=== PATIENT | male | born 1980 | race Caucasian/White ===

== ENCOUNTER → 2019-02-13 11:47 | Outpatient (CLI) | payer MEDICARE, MEDICAID, SELFPAY ==
[2014-11-19 14:53] VITALS: BMI 42.2
[2019-02-13 12:48] LABS: Albumin, Serum 3.2 g/dL (3.2-5.0); BUN 16 mg/dL (7-18); BUN/Creat Ratio 11.5 RATIO (10-20); Calcium,Total 9.6 mg/dL (8.5-10.1); Chloride 106 mmol/L (98-107); Creatinine, Serum 1.39 mg/dL (0.70-1.30); EST Glomerular Filtration Rate 61 mL/min (>60); Est Glom Filt Rate - Afr Amer 74 mL/min (>60); Glucose 70 mg/dL (74-106); Phosphorus 2.3 mg/dL (2.5-4.9); Potassium 4.3 mmol/L (3.5-5.1); Sodium Level 140 mmol/L (136-145)
[2019-02-13 12:57] LABS: Vitamin D,25 Hydroxy 47.3 ng/mL (29.95-100.01)
[2019-02-13 12:58] LABS: PTHIN 121.5 pg/mL (18.4-80.1)
== END ==
PROVIDERS: Family Provider Family Medicine; PCP Family Medicine; Visit Provider Internal Medicine Nephrology
DX: N18.3 Chronic kidney disease, stage 3 (moderate) (principal); E21.0 Primary hyperparathyroidism
CPT/HCPCS: 36415; 80069; 82306; 83970

== ENCOUNTER 2022-09-06 13:29 | Emergency (ER) | payer MEDICARE, MEDICAID, SELFPAY ==
[2022-09-06 13:30] VITALS: BP 175/114; PULSE 84; RESP 16; TEMP 36.3; O2SAT 99; BMI 40.1
--- NOTE | 2022-09-06 13:37 | RAD_ITS ---
STUDY: X-RAY - LEFT HAND REASON FOR EXAM: Male, 42 years old. EDEMA LEFT 3RD FINGER TECHNIQUE: 4 view(s) of the hand. COMPARISON: None. FINDINGS: Normal radiocarpal articulation. Normal distal radioulnar joint. Normal visualized carpal bones. Normal carpal articulations Normal carpometacarpal articulation of the thumb. Normal second through fifth carpometacarpal joints. Normal metacarpi. Normal metacarpophalangeal joint of the thumb. Normal interphalangeal joint of the thumb. Normal proximal and distal phalanges of the thumb. Normal metacarpophalangeal joints of the second through fifth fingers. Normal proximal and distal interphalangeal joints of the second through fifth fingers. Normal phalanges of the second through fifth fingers. Soft tissue swelling of the third digit. RAD/Hand Min 3 Views IMPRESSION: Diffuse soft tissue swelling of the third digit. No fracture or dislocation is seen. Electronically Signed: García Pickering MD at 14:00 EDT ,
--- NOTE | 2022-09-06 15:38 | EX.ED.UPPERE ---
HPI History of Present Illness Chief Complaint: Upper Extremity Injury Detail of Chief Complaint: Left middle finger pain and swelling Informant: patient Narrative Narrative: Patient presents to the emergency department with concern for pain and swelling of the left middle finger. He denies any injury. He does game frequently and he is not sure if he just held his finger awkwardly against controller. Patient also has history of gout and states that he had pain in his left small finger about a week ago and was started on steroids and that pain and swelling has since resolved. Patient was seen at urgent care and referred to the ER for evaluation. He has had no cuts or injuries to the finger. He had no fever. He does have history of gout. I believe urgent care may have been worried about flexor tenosynovitis based on what the patient is telling me. [facility] Medical History (Updated 09/06/22 @ 16:[address] Asim Rutledge DO) Epilepsy Gout HTN (hypertension) Kidney failure Home Medications Depakote 11/19/14 [History Last Taken Unknown] Lisinopril/Hydrochlorothiazide 11/19/14 [History Last Taken Unknown] cephalexin 500 mg capsule 500 mg PO Q6 #40 CAPSULES 09/06/22 [Rx Last Taken Unknown] prednisone 20 mg tablet 20 mg PO BID #8 tabs 09/06/22 [Rx Last Taken Unknown] Allergy/AdvReac Type Severity Reaction Status Date / Time No Known Allergies Allergy Verified 09/06/22 13:33 Social History Smoking Status: Never smoker ROS ROS ED Review of Systems ROS Unobtainable: other Constitutional Constitutional ED: Reports lethargy; Denies chills, fever(s), sweats or weight loss Eyes Eyes: Denies blurry vision, change in vision or diplopia ENT ENT ED: Denies rhinorrhea or sore throat Cardiovascular Cardiovascular: Denies chest pain, orthopnea or racing heartbeat Respiratory/Chest Respiratory/Chest: Denies cough, dyspnea, dyspnea on exertion, orthopnea or sputum Gastrointestinal Gastrointestinal: Denies abdominal pain, diarrhea, nausea or vomiting Genitourinary Genitourinary ED: Denies dysuria, hematuria or urinary frequency Musculoskeletal Musculoskeletal: Reports other Details: Pain and swelling to the left middle finger ; Denies arthralgias, back pain, myalgias or neck pain Integumentary Denies abscess, Abrasions or rash Neurologic Neurologic: Denies headache(s) or weakness Psychiatric Psychiatric: Denies anxiety, depression or suicidal thoughts Endocrine Endocrinology: Denies polydipsia, polyphagia or polyuria Hematologic/Lymphatic Hematologic/Lymphatic: Denies easy bleeding, easy bruising or lymphadenopathy Allergic/Immunologic Allergic/Immunologic ED: Denies mouth swelling, tongue swelling or urticaria EXAM Physical Exam Const Vital Signs: 09/06/22 13:30 Temperature 97.4 F L Temperature Source Temporal Pulse Rate 84 Respiratory Rate 16 Blood Pressure 175/114 H Blood Pressure Mean 134 Pulse Ox 99 Oxygen Delivery Method Room Air Positive well nourished and well developed General Appearance ED: well developed and NAD HEENT Reports TM's clear and moist mucous membranes normocephalic and atraumatic; Negative for trauma or tenderness Tympanic Membrane ED: Yes TM's clear Eyes PERRL and EOMs intact bilaterally General Eye ED: Negative for pale conjunctiva or scleral icterus Neck no lymphadenopathy, supple and no JVD General: Negative for tenderness Chest Wall inspection of chest normal and palpation of chest normal Chest: Negative for tenderness Resp normal respiratory effort and clear to auscultation bilaterally Effort and Inspection: Negative for respiratory distress or pain with movement Auscultation: Negative for rhonchi, wheezes or diminished lung sounds Cardio regular rate, regular rhythm, S1 normal heart sound, S2 normal heart sound and no murmurs Peripheral Pulses: pulses 2+ throughout GI normal to inspection, nondistended, normoactive bowel sounds, soft to palpation, non-tender, non-distended and no masses Back/Spine no CVA tenderness and no thoracic nor lumbar tenderness Extremity Extremity Narrative: Left middle finger-patient does have soft tissue swelling over the proximal phalanx mostly over the volar aspect of the middle finger with some tenderness over the flexor tendon. He is able to extend and bend and he has some limitation in flexion of the digits secondary to pain and swelling but is able to flex to about 75 degrees. There is no erythema or warmth. Neurovascular intact distally General Extremety ED: Negative for edema General Extremity: Negative for edema Neuro oriented x3, CN's II-XII intact bilaterally, no sensory deficits noted and gait normal Sensorium / Orientation: awake, alert, oriented to person, oriented to place and oriented to time Motor Exam: strength 5/5 throughout and strength abnormal Psych mental status grossly normal Skin no rashes or lesions noted and no wounds MDM MDM MDM Narrative Medical decision making narrative: Patient presents with swelling of the left middle finger. No trauma known. History of gout. Nursing staff ordered x-ray of the finger via protocol due to the volume in the ED and extensive time to see patients. X-rays were read as negative for fracture or dislocation but did note soft tissue swelling. In the differential would be early onset of flexor tenosynovitis versus gouty arthropathy. We will discuss case with orthopedics Dr. Abdul. Dr. Mendoza would be happy to see patient in the office in follow-up. Will cover with Keflex as well as prednisone as this could be gout versus flexor synovitis which may be early. Patient advised to return if increasing pain, redness, swelling, or condition worsening way. Patient will be placed in an aluminum splint. Radiography Diagnostic Testing: Clinical Impression(s) from Imaging Studies Hand X-Ray 09/06/22 13:37 IMPRESSION: Diffuse soft tissue swelling of the third digit. No fracture or dislocation is seen. Electronically Signed: García Pickering MD at 14:00 EDT , Three-view x-rays of left hand obtained interpreted by myself no evidence of fracture or dislocation. There was soft tissue swelling over the middle finger. Radiology in agreement. Discharge Plan Triage Chief Complaint: Upper Extremity Injury ED Provider: Asim Rutledge Dx/Rx/DC Orders Clinical Impression: Pain of left middle finger Instructions: ED Pain, Acute, Uncertain Cause Prescriptions: New cephalexin [cephalexin] 500 mg capsule 500 mg PO Q6 Qty: 40 0RF prednisone 20 mg tablet 20 mg PO BID Qty: 8 0RF No Action Depakote Lisinopril/Hydrochlorothiazide Primary Care Provider: Asim Degroot Referrals: Travis Mendoza DO [Med Staff - Active Staff] - 3-5 Days Asim Degroot MD [Primary Care Provider] - Disposition Disposition: Home, Self Care
[2022-09-06 15:51] VITALS: BP 155/89; PULSE 69; RESP 16; O2SAT 97
[2022-09-06] MEDS: Cephalexin 250 MG Capsule 500 MG PO (16:17)
[2022-09-06] MEDS: predniSONE 20 MG Tablet 40 MG PO (16:17)
== END 2022-09-06 16:41 | disposition home or self-care (01) ==
LOC: ED 16:40
PROVIDERS: Emergency Provider Emergency Medicine; PCP Physician Assistant; Visit Provider Emergency Medicine
DX: M79.645 Pain in left finger(s) (principal); G40.909 Epilepsy, unspecified, not intractable, without status epilepticus; M79.89 Other specified soft tissue disorders; I10 Essential (primary) hypertension; Z79.899 Other long term (current) drug therapy
CPT/HCPCS: 73130; 99284

== ENCOUNTER 2024-02-26 14:55 | Emergency (ER) | payer MEDICARE, MEDICAID, SELFPAY ==
[2024-02-26 14:56] VITALS: BP 168/102; PULSE 79; RESP 15; TEMP 36.8; O2SAT 100; BMI 37.0
--- NOTE | 2024-02-26 15:39 | EX.ED.UPPERE ---
HPI History of Present Illness Chief Complaint: Upper Extremity Injury Narrative Narrative: Patient is a 44-year-old male with past medical history of CKD, hypertension, gout, epilepsy who presents to the emergency department with a chief complaint of left hand swelling. Patient states that he obtained the flu shot last Sunday and asked the provider prior to this if there were any side effects and they were told no. He states that he thought he may have a flare from this but he was unsure. He states that his hand looks very similar to his previous gout flare however he went to a another medical facility and was advised to come to the emergency department to be evaluated. He states that he did have a seizure recently after the swelling and notes that he was unsure if he laid on his wrist wrong after the seizure or not. Patient once again does believe that this is his gout flaring up as this is very similar to how presented last time. He states that he was placed on steroids last time. Patient denies any smoking, alcohol use, drug use or any history of IV drug use [facility] Medical History Kidney failure HTN (hypertension) Epilepsy Gout Home Medications ?Medication ?Instructions ?Recorded ?Last Taken ?Type Depakote 11/19/14 Unknown History Lisinopril/Hydrochlorothiazide 11/19/14 Unknown History prednisone 20 mg tablet 20 mg PO BID #8 tabs 09/06/22 Unknown Rx colchicine 0.6 mg capsule 0.6 mg PO DAILY #1 cap 02/26/24 Unknown Rx famotidine 20 mg tablet 20 mg PO DAILY 02/26/24 Unknown History lamotrigine 200 mg tablet,extended 200 mg PO DAILY 02/26/24 Unknown History release 24 hr levetiracetam 500 mg 1,000 mg PO DAILY 02/26/24 Unknown History tablet,extended release 24 hr methylprednisolone 4 mg tablets in 4 mg PO DAILY #21 tabs 02/26/24 Unknown Rx a dose pack Allergy/AdvReac Type Severity Reaction Status Date / Time No Known Allergies Allergy Verified 02/26/24 14:57 Social History Smoking Status: Never smoker ROS ROS ED ROS Narrative Constitutional: Denies any fevers, chills, headaches, lightness, dizziness Eyes: No changes to double vision blurry vision Cardiovascular: Denies chest pain or palpitations Respiratory: Denies coughing wheezing shortness of breath Abdomen: Denies abdominal pain nausea vomit diarrhea Neurological: Denies any numbness, weakness, tingling Musculoskeletal: Complains of a left hand swelling as noted above Skin: Complains of redness from his gout as noted above EXAM Physical Exam Narrative Exam Narrative: General: Patient was lying in bed rest comfortably did not appear to be acute distress Head: Atraumatic, normocephalic Eyes: PERRL bilaterally, EOMI bilaterally, no conjunctival injection noted Neck: Soft, supple, trachea midline Cardiovascular: Regular rate and rhythm no murmurs gallops rubs noted Respiratory: Clear to auscultation bilaterally Musculoskeletal: Patient's left upper extremity compartments soft compressible, patient has a mild tenderness palpation on the dorsal aspect of his hand Extremities: +5/5 strength noted in the bilateral upper and lower extremities, radial pulses +2/4 in the bilateral per extremities, patient has decreased range of motion of his left wrist but states that this is not abnormal for him. Neurological: Patient following commands knew that he was at [facility] year is 2024. Sensation grossly intact in the median ulnar and radial nerve distributions bilaterally Skin: Warm, dry, patient has mild erythema noted to the dorsal aspect of his left hand with swelling noted Const Vital Signs: 02/26/24 14:56 Temperature 98.2 F Temperature Source Temporal Pulse Rate 79 Respiratory Rate 15 Blood Pressure 168/102 H Blood Pressure Mean 124 Pulse Ox 100 Oxygen Delivery Method Room Air MDM MDM MDM Narrative Medical decision making narrative: Patient is a 44-year-old male who presented to the emergency department the chief complaint of left hand redness and swelling and concerned that he was having a gout flare. Once again he states that this is very similar to how his previous gout flare presented and was given prednisone. On the differential diagnose includes but not limited to distal radius fracture, metacarpal fracture, gout, cellulitis. Once workup is obtained reviewed he will be reevaluated. Patient's x-ray of his hand reviewed by myself by radiology showed no acute fracture or dislocation. Patient's x-ray of the forearm reviewed by myself by radiology showed normal exam no acute fracture or dislocation. On reevaluation the patient he states that he feels like the steroids are starting to help and he would like to go home at this point time. He states that he was on a steroid taper pack for his previous gout flare. This will be prescribed as well as we will place him on colchicine. First dose will be given here and then his 1 hour later dose will be sent to the pharmacy as well. He is advised to follow-up with his primary care physician after setting and return with worsening symptoms and concerns. He is agreed this plan as well as family members at bedside all question concerns answered he is discharged home in stable condition. Discharge Plan Triage Chief Complaint: Upper Extremity Injury ED Provider: Fede Davis Dx/Rx/DC Orders Clinical Impression: Gout Prescriptions: New colchicine 0.6 mg capsule 0.6 mg PO DAILY Qty: 1 0RF methylprednisolone 4 mg tablets,dose pack 4 mg PO DAILY Qty: 21 0RF No Action Depakote Lisinopril/Hydrochlorothiazide prednisone 20 mg tablet 20 mg PO BID Qty: 8 0RF famotidine 20 mg tablet 20 mg PO DAILY lamotrigine 200 mg tablet extended release 24hr 200 mg PO DAILY levetiracetam 500 mg tablet extended release 24 hr 1,000 mg PO DAILY Primary Care Provider: Randolph Fatima Referrals: Randolph Fatima PA [Primary Care Provider] - Activity Restrictions/Additional Instructions: At approximately 6:20 PM take the other colchicine pill that was sent to your pharmacy. The steroid taper pack tomorrow. Return with worsening symptoms or concerns otherwise follow with your primary care physician outpatient setting. Print Language: Macedonian Disposition Disposition: Home, Self Care
[2024-02-26] MEDS: predniSONE 20 MG Tablet 60 MG PO (15:50)
--- NOTE | 2024-02-26 16:00 | RAD_ITS ---
STUDY: X-RAY - LEFT HAND REASON FOR EXAM: Male, 44 years old. pain, hx of gout TECHNIQUE: 3 view(s) of the hand. COMPARISON: None. FINDINGS: Normal radiocarpal articulation. Normal distal radioulnar joint. Normal visualized carpal bones. Normal carpal articulations Normal carpometacarpal articulation of the thumb. Normal second through fifth carpometacarpal joints. Normal metacarpi. Normal metacarpophalangeal joint of the thumb. Normal interphalangeal joint of the thumb. Normal proximal and distal phalanges of the thumb. Normal metacarpophalangeal joints of the second through fifth fingers. Normal proximal and distal interphalangeal joints of the second through fifth fingers. Normal phalanges of the second through fifth fingers. The soft tissue structures are unremarkable. RAD/Hand Min 3 Views IMPRESSION: Normal x-ray examination of the hand. Electronically Signed: Rakesh Ching MD at 16:23 EST ,
--- NOTE | 2024-02-26 16:00 | RAD_ITS ---
STUDY: X-RAY - LEFT RADIUS AND ULNA REASON FOR EXAM: Male, 44 years old. pain, hx of gout TECHNIQUE: AP and lateral view(s) of the forearm. COMPARISON: None. FINDINGS: There is no demonstrated soft tissue swelling. Normal visualized radius. Normal visualized ulna. RAD/Forearm 2 Views IMPRESSION: Normal x-ray examination of the radius and ulna. Electronically Signed: Rakesh Ching MD at 16:22 EST ,
[2024-02-26] MEDS: Colchicine 0.6 MG TABLET 1.2 MG PO (17:34)
[2024-02-26 17:37] VITALS: BP 138/76; PULSE 88; RESP 18; TEMP 36.4; O2SAT 99
== END 2024-02-26 17:37 | disposition home or self-care (01) ==
PROVIDERS: Emergency Provider Emergency Medicine; PCP Physician Assistant; Visit Provider Emergency Medicine
DX: M10.9 Gout, unspecified (principal); I12.9 Hypertensive chronic kidney disease with stage 1 through stage 4 chronic kidney disease, or unspecified chronic kidney disease; N18.9 Chronic kidney disease, unspecified; Z79.899 Other long term (current) drug therapy
CPT/HCPCS: 73090; 73130; 99283